=== PATIENT | female | born 1955 | race Caucasian/White ===

== ENCOUNTER 2017-11-30 09:50 | Outpatient (CLI) | payer OTHER ==
--- NOTE | 2017-11-30 11:43 | RAD ---
CERVICAL SPINE 3 VIEWS: Date: 11/30/17 HISTORY: Neck pain. FINDINGS/IMPRESSION: Postop changes of lower cervical spine, including anterior cervical spine fusions from C3 through C7 are again seen, as well as exam of 09/19/09. These appear to be in good position and alignment. Metal lic hardware is intact. No acute fracture, dislocation, or bony destruction is seen. POS: [facility]
== END 2017-11-30 09:51 | disposition home or self-care (01) ==
LOC: SCSRAD 09:50
PROVIDERS: ATTEND Psychiatry & Neurology Neurology
DX: M50.220 Other cervical disc displacement, mid-cervical region, unspecified level (principal); Z98.1 Arthrodesis status
CPT/HCPCS: 72040

== ENCOUNTER 2017-12-21 10:30 | Outpatient (CLI) | payer OTHER | END 2017-12-21 10:31 | disposition home or self-care (01) | LOC: CTENTCT 10:30 | PROVIDERS: ATTEND Otolaryngology Plastic Surgery within the Head & Neck | DX: J32.9 Chronic sinusitis, unspecified (principal) | CPT/HCPCS: 70486 ==

== ENCOUNTER 2018-01-06 12:11 | Day surgery (SDC) | payer OTHER ==
[2018-01-05 11:13] VITALS: BMI 22.8
[~2018-01-06 12:11] MED LIST: Ketorolac Tromethamine 30 MG/ML VIAL ONE; Lidocaine 1% PF 5 ML VIAL ONE; Ondansetron HCl/PF 4 MG/2 ML Vial ONE; Propofol 200 MG/20 ML VIAL ONE; Succinylcholine Chloride 20 MG/ML 10 ml SYRINGE FS ONE
[2018-01-06] MEDS ORDERED: Oxymetazoline HCl 0.05% ( 15 ML ) ONE ×2 (14:12→15:20)
[2018-01-06] MEDS ORDERED: Ondansetron HCl/PF 4 MG/2 ML Vial ONE ×2 (14:15→15:19)
[2018-01-06] MEDS ORDERED: Midazolam HCl 2 mg/2 ml Vial ONE (14:32)
[2018-01-06] MEDS ORDERED: Famotidine/PF 20 mg/2ml Vial ONE (15:19)
[2018-01-06] MEDS ORDERED: Fentanyl 100 MCG/2 ML VIAL ONE ×2 (15:19→16:30)
[2018-01-06] MEDS ORDERED: Bacitracin Zinc Ointment 30 gm TUBE ONE (15:20)
[2018-01-06] MEDS ORDERED: Lidocaine 1% w/Epinephrine 1:200K 30 ML VIAL ONE (15:20)
[2018-01-06] MEDS ORDERED: HYDROcodone/Acetaminophen 5/325 mg Tablet ONE (17:48)
--- NOTE | 2018-01-07 13:01 | OP ---
PREOPERATIVE DIAGNOSES: 1. Recurrent acute sinusitis. 2. Chronic rhinosinusitis. 3. Bilateral middle turbinate orlando bullosa. 4. Bilateral inferior turbinate hypertrophy. 5. Nasal obstruction. POSTOPERATIVE DIAGNOSES: 1. Recurrent acute sinusitis. 2. Chronic rhinosinusitis. 3. Bilateral middle turbinate orlando bullosa 4. Bilateral inferior turbinate hypertrophy. 5. Nasal obstruction. PROCEDURES: 1. Bilateral endoscopic sinus surgery, total ethmoidectomies. 2. Bilateral endoscopic sinus surgery, maxillary antrostomies. 3. Bilateral endoscopic sinus surgery, frontal sinusotomies. 4. Bilateral inferior turbinate submucosal resection. POSTOPERATIVE DIAGNOSIS: 1. Recurrent acute sinusitis. 2. Chronic rhinosinusitis. 3. Bilateral middle turbinate orlando bullosa 4. Bilateral inferior turbinate hypertrophy. 5. Nasal obstruction. SURGEON: Donnell Currie M.D. ESTIMATED BLOOD LOSS: 50 mL COMPLICATIONS: None. ANESTHESIA: GETA. DESCRIPTION OF PROCEDURE: The patient was taken to the operating room and placed supine on the table . General endotracheal anesthesia obtained by the Anesthesia staff. Tube was secured in the left lo wer lip. The patient was then placed in the beach chair position. The 0 degree endoscope was used t o inject 1% lidocaine with 1:100,000 epinephrine via a 27-gauge needle into the inferior turbinates, middle turbinates, lateral nasal wall. Following this, the 0 degree scope was advanced to visualize the large middle turbinates which were obstructing the entire lateral nasal wall. Vertical incisions were made in the anterior portion of the middle turbinate, exposing the large bilateral orlando bullo sas. The lateral portion of the orlando bullosa wall was then resected using the straight microdebrid er and the straight Blakesley forceps. Following this, the uncinate process was visualized and was a nteriorly fractured using the bone probe. The uncinate was then removed bilaterally using the microd ebrider and straight Blakesley forceps. Following this, the natural maxillary ostia was then identif ied with the ball-ended probe and was gently widened using the curved microdebrider and straight micr odebrider bilaterally. Following this, the ethmoidal bulla was identified bilaterally and was punctu red on its medial and inferior aspect and was removed using the microdebrider and straight Blakesley forceps. Following this, the grand lamella was identified bilaterally and was punctured in the poste rior ethmoidal cells. Working from posterior to anterior, the ethmoidal cells were opened in a mucos al-sparing technique. Following this, 45-degree scope along with 40-degree RADenoid blade was then u sed to further open the frontal sinus ostia and frontal sinus recess area. Following this, the nasal cavity was irrigated. Meropacks were placed in the middle meatus. The patient tolerated the proced ure well.
== END 2018-01-06 18:10 | disposition home or self-care (01) ==
LOC: SDC 12:11
PROVIDERS: ATTEND Otolaryngology Plastic Surgery within the Head & Neck
PROC: 09TU8ZZ Resection of Right Ethmoid Sinus, Via Natural or Artificial Opening Endoscopic (ICD-10-PCS; principal; 2018-01-06)
PROC: 099R8ZZ Drainage of Left Maxillary Sinus, Via Natural or Artificial Opening Endoscopic (ICD-10-PCS; principal; 2018-01-06)
PROC: 099Q8ZZ Drainage of Right Maxillary Sinus, Via Natural or Artificial Opening Endoscopic (ICD-10-PCS; principal; 2018-01-06)
PROC: 09TL4ZZ Resection of Nasal Turbinate, Percutaneous Endoscopic Approach (ICD-10-PCS; principal; 2018-01-06)
PROC: 09TV8ZZ Resection of Left Ethmoid Sinus, Via Natural or Artificial Opening Endoscopic (ICD-10-PCS; principal; 2018-01-06)
PROC: 099T8ZZ Drainage of Left Frontal Sinus, Via Natural or Artificial Opening Endoscopic (ICD-10-PCS; principal; 2018-01-06)
PROC: 099S8ZZ Drainage of Right Frontal Sinus, Via Natural or Artificial Opening Endoscopic (ICD-10-PCS; principal; 2018-01-06)
DX: J01.91 Acute recurrent sinusitis, unspecified (principal); J32.9 Chronic sinusitis, unspecified; J34.3 Hypertrophy of nasal turbinates; J34.89 Other specified disorders of nose and nasal sinuses; J42 Unspecified chronic bronchitis; K21.9 Gastro-esophageal reflux disease without esophagitis; K58.9 Irritable bowel syndrome, unspecified; M19.90 Unspecified osteoarthritis, unspecified site; M81.0 Age-related osteoporosis without current pathological fracture; G43.909 Migraine, unspecified, not intractable, without status migrainosus; Z88.1 Allergy status to other antibiotic agents; Z88.2 Allergy status to sulfonamides; Z88.5 Allergy status to narcotic agent; Z88.8 Allergy status to other drugs, medicaments and biological substances; Z79.899 Other long term (current) drug therapy
CPT/HCPCS: 85014; 93005; 93010; 96374; J0131; J2250; J2405; J3010; J7620; S0028

== ENCOUNTER 2018-02-05 08:36 | Outpatient (CLI) | payer OTHER | END 2018-02-05 08:37 | disposition home or self-care (01) | LOC: BICMAMMO 08:36 | PROVIDERS: ATTEND Family Medicine | DX: Z12.31 Encounter for screening mammogram for malignant neoplasm of breast (principal); R92.8 Other abnormal and inconclusive findings on diagnostic imaging of breast | CPT/HCPCS: 77067 ==

== ENCOUNTER 2018-02-12 08:55 | Outpatient (CLI) | payer OTHER | END 2018-02-12 08:56 | disposition home or self-care (01) | LOC: BICMAMMO 08:55 | PROVIDERS: ATTEND Family Medicine | DX: R92.2 Inconclusive mammogram (principal) | CPT/HCPCS: G0279 ==

== ENCOUNTER 2018-02-27 16:46 | Emergency (ER) | payer OTHER ==
--- NOTE | 2018-02-27 17:40 | RAD ---
AP VIEW CHEST: 02/27/18 HISTORY: Fall with chest pain. AP view chest demonstrates ACDF plates and screws in the lower cervical spine. the lungs are well aer ated. No evidence of active intrathoracic disease seen. No evidence of effusions, pneumonia or pneumo thorax seen. IMPRESSION: Unremarkable AP view chest. POS: [facility]
--- NOTE | 2018-02-27 17:42 | RAD ---
TWO VIEWS RIGHT HUMERUS: 02/27/18 HISTORY: Fall with right humeral pain. AP and lateral views right humerus obtained. Two views right humerus demonstrates some widening of the right AC joint. This may be postoperative o r may represent right AC joint posttraumatic separation. Correlate with comparison radiographs of rig ht and left shoulders to evaluate for possible right AC joint separation as well as correlate with cl inical findings. The right humerus is unremarkable. there may be a nondisplaced right 8th rib fracture. IMPRESSION: 1. Possible right AC joint separation and nondisplaced right 8th rib fracture. 2. No evidence of right humeral abnormality seen. POS: [facility]
--- NOTE | 2018-02-27 17:43 | RAD ---
AP VIEW PELVIS: 02/27/18 HISTORY: 63-year-old with history of fall. Pelvic pain. AP view of the pelvis is obtained. The pelvis is unremarkable. No evidence of pelvic fractures, sublu xations or bony lesions seen. IMPRESSION: Unremarkable AP view pelvis. POS: [facility]
--- NOTE | 2018-02-27 17:47 | CT ---
CT BRAIN 02/27/18 HISTORY: Fall. Pinned down under right side of body. Noncontrast enhanced CT images of the brain obtained. Brain and bone windows obtained. CT images of the brain demonstrate fluid seen in the right maxillary sinus. A moderate amount of flui d seen in the right frontal sinus. The patient has had previous surgical possible unroofing in the ri ght and left ethmoid air cells. Some minimal left sphenoid sinus mucosal thickening is seen. No evidence of acute intracranial masses, hemorrhages or strokes seen. IMPRESSION: Paranasal sinus disease. No evidence of acute intracranial pathology seen. POS: [facility]
[2018-02-27] MEDS ORDERED: Ibuprofen 200 MG TAB ONE (18:03)
== END 2018-02-27 18:23 | disposition home or self-care (01) ==
LOC: SCSER 16:46
DX: S22.31XA Fracture of one rib, right side, initial encounter for closed fracture (principal); S43.101A Unspecified dislocation of right acromioclavicular joint, initial encounter; K21.9 Gastro-esophageal reflux disease without esophagitis; J44.9 Chronic obstructive pulmonary disease, unspecified; F41.9 Anxiety disorder, unspecified; F17.210 Nicotine dependence, cigarettes, uncomplicated; Z79.899 Other long term (current) drug therapy; W19.XXXA Unspecified fall, initial encounter
CPT/HCPCS: 70450; 71045; 72170

== ENCOUNTER 2018-03-05 23:16 | Emergency (ER) | payer OTHER ==
[2018-03-06] MEDS ORDERED: Ketorolac Tromethamine 30 MG/ML VIAL ONE (00:03)
[2018-03-06 00:05] LABS: #Basophils 0.1 thou/uL (0.0-0.2); #Eosinphils 0.2 thou/uL (0.0-0.7); #Lymphocytes 2.9 thou/uL (1.20-3.40); #Monocytes 0.6 thou/uL (0.11-0.59); #Neutrophils 5.3 thou/uL (1.40-6.50); %Basophils 0.9 % (0.0-1.0); %Lymphocytes 32.2 % (21.0-51.0); %Monocytes 6.8 % (0.0-10.0); %Neutrophils 58.2 % (42.0-75.0); Hemoglobin 12.6 g/dL (12.0-16.0); Mean Corpuscular HGB CONC 34.8 g/dL (32.0-36.0); Mean Corpuscular Hemoglobin 31.6 pg (27.0-31.0); Mean Corpuscular Volume 90.8 fl (81.0-99.0); Platelet Count 197 thou/uL (130-400); RBC Distribution Width 11.9 % (11.5-14.5); Red Blood Cell (RBC) Count 3.97 mill/uL (4.20-5.40)
[2018-03-06 00:19] LABS: ALT (SGPT) 12 U/L (8-55); AST (SGOT) 15 U/L (5-34); Albumin 3.8 g/dL (3.4-4.8); Alkaline Phosphatase 85 U/L (40-150); Anion Gap 13 mmol/L (10-20); BUN (Urea Nitrogen) 16 mg/dL (9.8-20.1); Bilirubin, Total 0.2 mg/dL (0.2-1.2); Calc. Creatinine Clearance 0 mL/min (70-130); Carbon Dioxide 27 mmol/L (23-31); Chloride 104 mmol/L (98-107); Estimated GFR-MDRD 64; Globulin 2.8 g/dL (2.4-3.5); Glucose 105 mg/dL (80-115); Potassium 3.7 mmol/L (3.5-5.1); Protein, Total 6.6 g/dL (6.0-8.3); Sodium 140 mmol/L (136-145)
--- NOTE | 2018-03-06 08:24 | CT ---
CHEST AND ABDOMEN AND PELVIS CT WITH CONTRAST CT THORACIC SPINE WITH CONTRAST CT LUMBAR SPINE WITH CONTRAST: (Reformatted imaging performed) CLINICAL HISTORY: Chest pain, right upper abdominal pain, related to injury from fall. FINDINGS: There are linear parenchymal densities of the bilateral apices and the left upper lobe indicating pro bable areas of scar and/or subsegmental atelectasis. Nonspecific patchy ground-glass and nodular sub pleural densities are also present bilaterally more sizable on the right, with overlying right 4th ri b cortical irregularity. There is no pleural effusion or pneumothorax. The thoracoabdominal aorta i s nonaneurysmal, with scattered vascular disease present. No acute posttraumatic sequelae of the jorge luis id abdominal organs. There is an exophytic density emanating posteriorly and laterally from the left kidney, which as present on prior abdomen CT 09/23/10. The bowel is incompletely evaluated without the presence of enteric contrast. No ascites or pneumoperitoneum. Moderate distention of the unopac ified urinary bladder as present. Evaluation of the thoracolumbar spine reveals no definite acute co mpression fracture or significant subluxation. There is multilevel degenerative change present. Inc idental note, within the partially imaged thyroid gland, punctate hypoattenuation may relate to small nodules of the thyroid gland. IMPRESSION: 1. There are scattered nonspecific nodular and ground glass subpleural densities of each lung, compo nent of which likely relates to small contusion, underlying a minimal right 4th rib deformity. Recom mend CT thorax as followup in 3-4 months to confirm resolution, exclude progression. 2. Additional details are discussed above. CODE T POS: [facility]
== END 2018-03-06 02:25 | disposition home or self-care (01) ==
LOC: SCSER 23:16
DX: R07.89 Other chest pain (principal); K21.9 Gastro-esophageal reflux disease without esophagitis; J44.9 Chronic obstructive pulmonary disease, unspecified; F17.210 Nicotine dependence, cigarettes, uncomplicated; F41.9 Anxiety disorder, unspecified; G89.29 Other chronic pain; Z79.899 Other long term (current) drug therapy; W19.XXXA Unspecified fall, initial encounter
CPT/HCPCS: 71260; 74177; 80053; 85025; 96374; J1885

== ENCOUNTER 2018-03-24 08:50 | Outpatient (CLI) | payer OTHER ==
--- NOTE | 2018-03-24 10:05 | RAD ---
PA AND LATERAL CHEST: History: Dyspnea. Comparison: 03-24-17 FINDINGS: Heart size is within normal limits. There are atherosclerotic changes of the aorta. The lungs are melida ar of infiltrates. Linear scarring is seen in the left upper lobe. IMPRESSION: Chronic lung change. Stable chest. POS: [facility]
== END 2018-03-24 08:51 | disposition home or self-care (01) ==
LOC: RAD 08:50
PROVIDERS: ATTEND Internal Medicine Critical Care Medicine
DX: R06.00 Dyspnea, unspecified (principal)
CPT/HCPCS: 71046

== ENCOUNTER 2018-03-24 14:15 | Outpatient (CLI) | payer OTHER | END 2018-03-24 14:16 | disposition home or self-care (01) | LOC: BICMRI 14:15 | PROVIDERS: ATTEND Orthopaedic Surgery | DX: M75.101 Unspecified rotator cuff tear or rupture of right shoulder, not specified as traumatic (principal) ==

== ENCOUNTER 2018-05-07 09:07 | Outpatient (CLI) | payer OTHER ==
--- NOTE | 2018-05-07 12:40 | ULT ---
PELVIC ULTRASOUND: DATE: 05/07/18. Hit Abdominal pain. FINDINGS: The uterus and bilateral ovaries are not visualized. The patient provides a history of prior complet e hysterectomy. There are mildly distended fluid-filled loops of bowel seen within the pelvis. The urinary bladder is partially distended and grossly normal in appearance. No free fluid or mass is seen in the pelvis. IMPRESSION: 1. Nonvisualization of the uterus and bilateral ovaries related to patient's provided history of comp lete hysterectomy. 2. No mass or free fluid is seen in the pelvis. POS: [facility]
--- NOTE | 2018-05-07 12:42 | ULT ---
ULTRASOUND ABDOMEN: HISTORY: Abdominal pain. COMPARISON: None. FINDINGS: Visualized portions of the pancreas unremarkable. Hepatic echotexture is normal. Portable vein is p atent with antegrade flow. Common bile duct measures just 7 mm. Prior cholecystectomy. Right kidney measures 11.9 x 4.3 x 5 cm without mass, hydronephrosis, or abno rmal calcifications. The spleen measures 10 cm in length. The left kidney measures 10.4 x 5.1 x 3.9 cm with a mildly comp licated hypoechoic focus of the inferior pole measuring up to 2.5 cm. IMPRESSION: Findings suggesting a complicated left renal cyst. A followup in 6 months is recommended. POS: [facility]
== END 2018-05-07 09:08 | disposition home or self-care (01) ==
LOC: SCSULT 09:07
PROVIDERS: ATTEND Family Medicine
DX: R10.9 Unspecified abdominal pain (principal); R14.0 Abdominal distension (gaseous); R68.81 Early satiety; Z90.710 Acquired absence of both cervix and uterus
CPT/HCPCS: 76700; 76856

== ENCOUNTER 2018-09-10 08:26 | Emergency (ER) | payer OTHER ==
[2018-09-10] MEDS ORDERED: Ketorolac Tromethamine 30 MG/ML VIAL ONE (08:46)
--- NOTE | 2018-09-10 09:17 | RAD ---
LEFT KNEE 4 VIEWS: Date: 09/10/18 HISTORY: Fall. Left knee pain. FINDINGS/IMPRESSION: No fracture or dislocation is seen. POS: [facility]
--- NOTE | 2018-09-10 09:18 | RAD ---
CHEST 1 VIEW: Date: 09/10/18 Time: 0856 hours HISTORY: Trauma, chest pain. FINDINGS: The heart size is normal. The aorta is tortuous. The lungs are expanded without focal areas of consol idation, pneumothorax, or pleural effusions. There are postop changes and metallic hardware in the lo wer cervical spine. IMPRESSION: No radiographic evidence of acute cardiopulmonary process. POS: [facility]
--- NOTE | 2018-09-10 09:19 | RAD ---
AP PELVIS: Date: 09/10/18 HISTORY: Fall. COMPARISON: 02/27/18. FINDINGS: Pelvic ring is intact without evidence of fracture. SI joints are symmetric. No diastasis of symphysi s. Minimal arthritic changes of the hips are seen. IMPRESSION: No evidence of acute injury. POS: [facility]
--- NOTE | 2018-09-10 09:20 | RAD ---
RIGHT HUMERUS 2 VIEWS: Date: 09/10/18 HISTORY: Fall with humeral pain. FINDINGS: Postoperative changes related to what appears to be a previous rotator cuff repair are seen. The bone s appear demineralized. There are no signs of fracture. IMPRESSION: No evidence of fracture. POS: [facility]
--- NOTE | 2018-09-10 09:21 | CT ---
CT HEAD WITHOUT CONTRAST: Date: 09/10/18 COMPARISON: 02/27/18. HISTORY: Fall from standing, pain. TECHNIQUE: Serial axial CT imaging at 4.8 mm intervals from vertex through skull base without contrast. FINDINGS: Imaged paranasal sinuses/mastoid air cells demonstrate mild mucosal thickening of left maxillary sinu s. No acute osseous abnormality is evident. No intracranial hemorrhage, midline shift, mass effect, o r ventricular enlargement. IMPRESSION: No intracranial hemorrhage or displaced calvarial fracture. POS: [facility]
== END 2018-09-10 10:05 | disposition home or self-care (01) ==
LOC: SCSER 08:26
DX: S09.90XA Unspecified injury of head, initial encounter (principal); S80.01XA Contusion of right knee, initial encounter; S40.011A Contusion of right shoulder, initial encounter; S20.212A Contusion of left front wall of thorax, initial encounter; S20.211A Contusion of right front wall of thorax, initial encounter; K21.9 Gastro-esophageal reflux disease without esophagitis; G43.909 Migraine, unspecified, not intractable, without status migrainosus; F17.210 Nicotine dependence, cigarettes, uncomplicated; Z79.891 Long term (current) use of opiate analgesic; Z79.899 Other long term (current) drug therapy; W18.30XA Fall on same level, unspecified, initial encounter
CPT/HCPCS: 70450; 71045; 72170; 96372; J1885

== ENCOUNTER 2018-11-08 09:20 | Outpatient (CLI) | payer OTHER ==
--- NOTE | 2018-11-08 12:15 | CT ---
CT ANGIOGRAM GREAT VESSELS NECK WITH IV CONTRAST AND 3D MIP RECONSTRUCTIONS: Date: 11-08-18 Provided Clinical History: Syncopal episodes. FINDINGS: There is a normal three vessel configuration of the great vessels of the arch. The right subclavian, innominate, left subclavian and vertebral arteries demonstrate a normal CT angiographic appearance. T he right common carotid and internal carotid arteries demonstrate no significant stenosis. The left common carotid artery demonstrates atherosclerotic irregularity and calcified mural plaque i nvolving the carotid bulb. There is near occlusion of the external carotid artery origin on the left. There is calcified and noncalcified plaque producing approximately 50% stenosis involving the proxim al left internal carotid artery. The remainder of the left internal carotid artery demonstrate no sig nificant stenosis. The visualized lung apices demonstrate paraseptal emphysematous change and biapical pleural parenchym al scarring. Post-operative changes are seen involving the cervical spine. No regional lymphadenopath y or mass is evident. IMPRESSION: 1. Approximately 50% left proximal internal carotid artery stenosis. 2. Near occlusion of the left external carotid artery at its origin. POS: [facility]
[2018-11-08] MEDS ORDERED: ISOVUE-370 76%-LOCM 1 ML ONE (12:47)
== END 2018-11-08 09:21 | disposition home or self-care (01) ==
LOC: BICCT 09:20
PROVIDERS: ATTEND Neurological Surgery
DX: R55 Syncope and collapse (principal); I65.22 Occlusion and stenosis of left carotid artery
CPT/HCPCS: 70498; 82565

== ENCOUNTER 2019-01-03 15:52 | Emergency (ER) | payer OTHER ==
--- NOTE | 2019-01-03 16:34 | RAD ---
CHEST ONE VIEW LEFT RIBS TWO VIEWS: History: History of injury following a fall against a chain link fence with left sided pain. FINDINGS: Minimal linear and parenchymal changes in the left suprahilar region having more of a chronic appeara nce. No evidence for acute rib fracture. No pneumothorax or pleural effusion. IMPRESSION: No evidence for acute rib fracture, pneumothorax, or pleural effusion. Minimal linear and parenchymal changes, evidence for some scarring in the left upper lobe, stable. POS: [facility]
== END 2019-01-03 16:26 | disposition home or self-care (01) ==
LOC: SCSER 15:52
DX: S20.212A Contusion of left front wall of thorax, initial encounter (principal); K21.9 Gastro-esophageal reflux disease without esophagitis; G43.909 Migraine, unspecified, not intractable, without status migrainosus; F17.210 Nicotine dependence, cigarettes, uncomplicated; W19.XXXA Unspecified fall, initial encounter

== ENCOUNTER 2019-03-16 14:36 | Outpatient (CLI) | payer OTHER ==
--- NOTE | 2019-03-16 15:42 | MMO ---
Bilateral MAMMO Bilat Screen DDI. CLINICAL HISTORY: Patient is 64 years old and is seen for screening. The patient has no family history of breast cancer. The patient has no personal history of cancer. VIEWS: The views performed were: bilateral craniocaudal; bilateral mediolateral oblique; and right exaggerated craniocaudal. FILMS COMPARED: The present examination has been compared to prior imaging studies performed at [facility] on 12/25/2015, 12/26/2016, 02/05/2018 and 02/12/2018. This study has been interpreted with the assistance of computer-aided detection. MAMMOGRAM FINDINGS: There are scattered fibroglandular densities. There are stable benign appearing calcifications seen in both breasts. There are also vascular calcifications. There are no suspicious masses, suspicious calcifications, or new areas of architectural distortion. IMPRESSION: THERE IS NO MAMMOGRAPHIC EVIDENCE OF MALIGNANCY. A ROUTINE FOLLOW-UP MAMMOGRAM IN 1 YEAR IS RECOMMENDED. ACR BI-RADS Category 2 - Benign finding MAMMOGRAPHY NOTE: 1. A negative mammogram report should not delay a biopsy if a dominant of clinically suspicious mass is present. 2. Approximately 10% to 15% of breast cancers are not detected by mammography. 3. Adenosis and dense breasts may obscure an underlying neoplasm.
--- NOTE | 2019-03-16 16:17 | BD ---
Exam: DEXA Bone Density 03/16/19 HISTORY: Osteoporosis screening. COMPARISON: Bone density study 2017. FINDINGS: Lumbar Spine: BMD (g/cm2) T-SCORE Z-SCORE L1 0.817 -1.6 -0.2 L2 0.872 -1.4 0.1 L3 1.037 -0.4 1.2 L4 1.104 0.4 2.1 L1-L4 0.967 -0.7 0.8 WHO classification is normal. Left Femoral Neck: 0.621 -2.1 -0.7 Total Femur: 0.752 -1.6 -0.5 WHO classification is osteopenia. Ten year fracture risk: Major osteoporotic fracture: 10%. Hip fracture: 2.3%. Impression: Osteopenia With a fracture risk as above. POS: [facility]
== END 2019-03-16 14:37 | disposition home or self-care (01) ==
LOC: BICMAMMO 14:36
PROVIDERS: ATTEND Family Medicine
DX: Z12.31 Encounter for screening mammogram for malignant neoplasm of breast (principal); Z13.820 Encounter for screening for osteoporosis; M85.852 Other specified disorders of bone density and structure, left thigh
CPT/HCPCS: 77067; 77080

== ENCOUNTER 2019-04-06 13:42 | Outpatient (CLI) | payer OTHER ==
--- NOTE | 2019-04-06 14:13 | RAD ---
EXAM: Chest 2 views: HISTORY: Dyspnea COMPARISON: 03/24/2018 FINDINGS: There is a normal-sized cardiomediastinal silhouette. There is no evidence of consolidation, mass, or pleural effusion. Degenerative changes are seen in the spine. Postsurgical changes are seen in the cervical spine and right shoulder. IMPRESSION: No evidence of acute cardiopulmonary disease
== END 2019-04-06 13:43 | disposition home or self-care (01) ==
LOC: RAD 13:42
PROVIDERS: ATTEND Internal Medicine Critical Care Medicine
DX: R06.00 Dyspnea, unspecified (principal)
CPT/HCPCS: 71046

== ENCOUNTER 2019-06-28 15:38 | Outpatient (CLI) | payer OTHER ==
--- NOTE | 2019-06-28 16:12 | RAD ---
LUMBAR SPINE: 06/28/19 Four views. HISTORY: Low back pain. FINDINGS/IMPRESSION: Lumbar vertebrae maintain normal height. Mild loss of disc space at all levels. Mild spurring from th e lumbar vertebrae and prominent facet hypertrophy. Posterolisthesis at L2-3 is noted. Slight carmelo listhesis at L3-4. No significant change in alignment with flexion or extension. POS: [facility]
== END 2019-06-28 15:39 | disposition home or self-care (01) ==
LOC: BICRAD 15:38
PROVIDERS: ATTEND Neurological Surgery
DX: M54.5 Low back pain (principal); M43.16 Spondylolisthesis, lumbar region; M46.06 Spinal enthesopathy, lumbar region; M51.86 Other intervertebral disc disorders, lumbar region
CPT/HCPCS: 72110

== ENCOUNTER 2019-08-19 06:35 | Day surgery (SDC) | payer OTHER ==
[2019-08-12 15:56] VITALS: BMI 22.3
--- NOTE | 2019-08-18 16:38 | HP ---
HISTORY OF PRESENT ILLNESS: Ms. Castano is known to us for prior evaluations of cervical radiculopathy and low back pain. She returns now after having updated MRI of the cervical and lumbar spine as well as nerve conduction study. She has numbness in both hands as well as some intrinsic hand weakness. NCV shows no obvious concern for ulnar neuropathy or carpal tunnel. She does have C8-T1 foraminal stenosis that would account for C8 radicular symptoms that would fit this. She has treated this with medication injections and therapy with no improvement in her symptoms and hopes to discuss possible surgical interventions for treatment. PAST MEDICAL HISTORY: Significant for chronic bronchitis, IBS, osteoarthritis, osteoporosis, gastroesophageal reflux disease, migraines, neck pain. PAST SURGICAL HISTORY: Lumbar spine surgery, unspecified shoulder surgery, tonsillectomy, hemorrhoidectomy, appendectomy, section, cholecystectomy, left knee arthroscopy, ACDF. CURRENT MEDICATIONS: 1. Botox injections. 2. Nexium. 3. Effexor. 4. Aspirin. 5. [place]. ALLERGIES: TO ADVAIR, SULFA DRUGS, FLAGYL, CODEINE, BENADRYL, MORPHINE, LEVAQUIN, CIPRO, DURAGESIC, FENTANYL, ZITHROMAX, KEFLEX. PHYSICAL EXAMINATION: GENERAL: The patient is alert and oriented x3. Gait is antalgic and slowed. Upper extremity motor exam is limited by pain. She does have some decreased director life strength bilaterally. Positive Spurling's bilaterally. ASSESSMENT: Cervical radiculopathy. PLAN: Dr. Rodríguez met with the patient, reviewed imaging, advocated for bilateral C8-T1 foraminotomies. She explained the patient risks, benefits, and alternatives to the procedure. The patient expressed understanding and elected to go for surgery as discussed. I do believe the patient is mentally competent and capable of making medical decisions for herself. We will move forward with surgery as planned. Job ID: [id number]
[2019-08-19] MEDS ORDERED: Midazolam HCl 2 mg/2 ml Vial ONE (07:59)
[2019-08-19] MEDS ORDERED: Fentanyl 100 MCG/2 ML VIAL ONE (09:51)
[2019-08-19] MEDS ORDERED: Lidocaine 1% PF 5 ML VIAL ONE ×2 (09:52→10:01)
[2019-08-19] MEDS ORDERED: Rocuronium Bromide 50 MG/5 ML VIAL ONE (09:52)
[2019-08-19] MEDS ORDERED: PROPOFOL 20 ML ONE (09:52)
[2019-08-19] MEDS ORDERED: PHENYLEPHRINE-NS 100 MCG/ML 10 ML SYRINGE ONE (10:01)
[2019-08-19] MEDS ORDERED: Rocuronium Bromide 10 MG/ML (10ML VIAL) ONE (10:01)
[2019-08-19] MEDS ORDERED: Glycopyrrolate 0.2 MG/ML 5 ML SYRINGE ONE (10:01)
[2019-08-19] MEDS ORDERED: Ondansetron PF 4 MG/2 ML Vial ONE (10:01)
[2019-08-19] MEDS ORDERED: Dexamethasone 20 MG/5 ML VIAL ONE (10:01)
[2019-08-19] MEDS ORDERED: PROPOFOL 200 MG/20 ML VIAL ONE (10:01)
[2019-08-19] MEDS ORDERED: Bupivacaine HCl 0.5%/Epinephrine 1:200,000/PF 30 ml Vial ONE (10:34)
[2019-08-19] MEDS ORDERED: Thrombin 5000 UNITS/5 ML VIAL ONE (10:35)
[2019-08-19] MEDS ORDERED: HYDROmorphone 2 MG/ML VIAL ONE (11:38)
[2019-08-19] MEDS ORDERED: HYDROmorphone 0.5 MG/0.5 ML SYRINGE ONE (13:13)
[2019-08-19] MEDS ORDERED: HYDROcodone/Acetaminophen 5/325 mg Tablet ONE (14:54)
[2019-08-19] MEDS ORDERED: Cyclobenzaprine 10 MG TAB ONE (15:18)
--- NOTE | 2019-08-22 11:24 | OP ---
DATE OF PROCEDURE: 08/19/2019 HIDE GRADER: Mike Martin PA-C. INDICATION: Pain. DIAGNOSIS: C8 radiculopathies. PROCEDURE PERFORMED: Bilateral C8 foraminotomies. ANESTHESIA: General. DESCRIPTION OF PROCEDURE: The patient was brought into the operating room and placed under general anesthesia. She was flipped from the supine to prone position on the operating room table. A linear incision was planned over the C8-T1 segment. This area was prepped and draped. After an appropriate operative pause, the incision was created. The soft tissues were swept away from midline. A small high-speed cutting drill bit as well as 1 and 2 mm Kerrisons were then used to perform foraminotomies over the exiting C8 nerve roots bilaterally. After completing the decompression, the wound was irrigated. Hemostasis was maintained throughout. The wound was then closed in anatomic layers and a pressure dressing was applied. There were no known procedural complications. Job ID: [id number]
== END 2019-08-19 15:55 | disposition home or self-care (01) ==
LOC: SDC 06:35
PROVIDERS: ATTEND Neurological Surgery
PROC: 00NW0ZZ Release Cervical Spinal Cord, Open Approach (ICD-10-PCS; principal; 2019-08-19)
PROC: 0RB30ZZ Excision of Cervical Vertebral Disc, Open Approach (ICD-10-PCS; principal; 2019-08-19)
DX: M54.12 Radiculopathy, cervical region (principal); K58.9 Irritable bowel syndrome, unspecified; J42 Unspecified chronic bronchitis; M19.90 Unspecified osteoarthritis, unspecified site; K21.9 Gastro-esophageal reflux disease without esophagitis; Z79.899 Other long term (current) drug therapy; Z88.1 Allergy status to other antibiotic agents; Z88.2 Allergy status to sulfonamides; Z88.5 Allergy status to narcotic agent; Z88.8 Allergy status to other drugs, medicaments and biological substances
CPT/HCPCS: 76000; J0670; J0690; J1100; J1170; J2001; J2250; J2405; J2704; J3010

== ENCOUNTER 2020-03-19 06:19 | Outpatient (CLI) | payer OTHER | END 2020-03-19 06:20 | disposition home or self-care (01) | LOC: LABBT 06:19 | PROVIDERS: ATTEND Otolaryngology Plastic Surgery within the Head & Neck | DX: Z01.812 Encounter for preprocedural laboratory examination (principal); J34.89 Other specified disorders of nose and nasal sinuses; R09.81 Nasal congestion | CPT/HCPCS: 85014; 87635; U0003 ==

== ENCOUNTER 2020-03-26 06:29 | Outpatient (CLI) | payer OTHER ==
[2020-03-26 17:26] LABS: BHCG - Serum Negative (NEGATIVE); Pregs Control Background? CLEAR/WHITE (CLR/WHITE); Pregs Control Bar Appear? YES (CONTROL BAR)
[2020-03-27 13:11] LABS: SARS-CoV-2 MS2 Positive; SARS-CoV-2 N Gene Negative; SARS-CoV-2 S Gene Negative; SARS-CoV-2 orf1ab Negative
== END 2020-03-26 06:30 | disposition home or self-care (01) ==
LOC: LABBT 06:29
PROVIDERS: ATTEND Otolaryngology Plastic Surgery within the Head & Neck
DX: Z01.812 Encounter for preprocedural laboratory examination (principal); Z11.59 Encounter for screening for other viral diseases; J34.89 Other specified disorders of nose and nasal sinuses; R09.81 Nasal congestion
CPT/HCPCS: 84703; 85014; 87635; U0003

== ENCOUNTER 2020-03-28 07:34 | Day surgery (SDC) | payer OTHER ==
[2020-03-28] MEDS ORDERED: AFRIN NASAL MIST 15 ML BOT ONE ×2 (08:04→09:26)
[2020-03-28] MEDS ORDERED: Ondansetron PF 4 MG/2 ML Vial ONE ×2 (08:36→11:21)
[2020-03-28] MEDS ORDERED: Midazolam HCl 2 mg/2 ml Vial ONE ×2 (08:36→09:25)
[2020-03-28] MEDS ORDERED: Fentanyl 100 MCG/2 ML VIAL ONE (09:25)
[2020-03-28] MEDS ORDERED: Lidocaine 1% w/Epinephrine 1:100K 20 ML VIAL ONE (09:26)
[2020-03-28] MEDS ORDERED: PROPOFOL 200 MG/20 ML VIAL ONE (11:21)
--- NOTE | 2020-03-28 19:27 | EKG ---
Test Reason : PREOP Blood Pressure : / mmHG Vent. Rate : 072 BPM Atrial Rate : 072 BPM P-R Int : 162 ms QRS Dur : 082 ms QT Int : 406 ms P-R-T Axes : 072 054 070 degrees QTc Int : 444 ms Normal sinus rhythm Normal ECG No previous ECGs available Confirmed by DR. Dmitry ESCOBAR ([id number]) on 03/28/2020 7:27:22 PM Referred By: ARIANA Confirmed By:DR. Dmitry ESCOBAR
--- NOTE | 2020-03-29 12:45 | OP ---
DATE OF PROCEDURE: 03/28/2020 PREOPERATIVE DIAGNOSES: 1. Bilateral nasal obstruction. 2. Bilateral dynamic valve collapse. ESTIMATED BLOOD LOSS: Less than 5 mL. COMPLICATIONS: None. ANESTHESIA: TIVA. DESCRIPTION OF PROCEDURE: The patient was taken to the operating room. IV anesthesia was obtained. 1% lidocaine with 1:100,000 epinephrine was injected into the lateral nasal wall and nasal tip bilaterally. Following this, a small incision was made for a transcartilaginous approach to the lateral nasal wall. Following this, microdissection was performed overlying the lateral nasal bones and a small pocket was created supporting a graft, which was placed to support this lateral wall collapse. Incision was then closed using a 5-0 chromic gut stitch. The patient tolerated the procedure well bilaterally. Job ID: [id number]
== END 2020-03-28 11:02 | disposition home or self-care (01) ==
LOC: SDC 07:34
PROVIDERS: ATTEND Otolaryngology Plastic Surgery within the Head & Neck
PROC: 09QK0ZZ Repair Nasal Mucosa and Soft Tissue, Open Approach (ICD-10-PCS; principal; 2020-03-28)
DX: J34.89 Other specified disorders of nose and nasal sinuses (principal); R09.81 Nasal congestion; G89.29 Other chronic pain; M54.2 Cervicalgia; M54.9 Dorsalgia, unspecified; K21.9 Gastro-esophageal reflux disease without esophagitis; F17.210 Nicotine dependence, cigarettes, uncomplicated; J30.1 Allergic rhinitis due to pollen; J30.81 Allergic rhinitis due to animal (cat) (dog) hair and dander; Z79.82 Long term (current) use of aspirin; Z79.899 Other long term (current) drug therapy; Z88.1 Allergy status to other antibiotic agents; Z88.2 Allergy status to sulfonamides; Z88.5 Allergy status to narcotic agent; Z88.8 Allergy status to other drugs, medicaments and biological substances; Z98.1 Arthrodesis status
CPT/HCPCS: 36415; 80053; 80061; 93005; 93010; J2250; J2405; J2704; J3010

== ENCOUNTER 2021-03-08 07:01 | Outpatient (CLI) | payer OTHER ==
[2021-03-06 13:43] VITALS: BMI 22.8
[2021-03-08 10:20] VITALS: BP 111/57; TEMP 98
== END 2021-03-08 10:00 | disposition home or self-care (01) ==
LOC: RAD 07:01
PROVIDERS: ATTEND Neurological Surgery
DX: M47.22 Other spondylosis with radiculopathy, cervical region (principal); M47.26 Other spondylosis with radiculopathy, lumbar region; M47.813 Spondylosis without myelopathy or radiculopathy, cervicothoracic region; N20.0 Calculus of kidney; N28.9 Disorder of kidney and ureter, unspecified; I70.0 Atherosclerosis of aorta; Z98.1 Arthrodesis status
CPT/HCPCS: 62305; 72126; 72132; 90471; 90732; G0009

== ENCOUNTER 2021-04-04 11:11 | Outpatient (CLI) | payer OTHER | END 2021-04-04 11:12 | disposition home or self-care (01) | LOC: BICRAD 11:11 | PROVIDERS: ATTEND Family Medicine | DX: M25.561 Pain in right knee (principal); M25.461 Effusion, right knee ==

== ENCOUNTER 2021-04-16 09:59 | Outpatient (CLI) | payer OTHER | END 2021-04-16 10:00 | disposition home or self-care (01) | LOC: BICRAD 09:59 | PROVIDERS: ATTEND Internal Medicine Critical Care Medicine | DX: R06.00 Dyspnea, unspecified (principal) | CPT/HCPCS: 71046 ==

== ENCOUNTER 2021-04-23 13:23 | Outpatient (CLI) | payer OTHER | END 2021-04-23 13:24 | disposition home or self-care (01) | LOC: BICCT 13:23 | PROVIDERS: ATTEND Internal Medicine Critical Care Medicine | DX: Z12.2 Encounter for screening for malignant neoplasm of respiratory organs (principal); F17.210 Nicotine dependence, cigarettes, uncomplicated; I70.0 Atherosclerosis of aorta; N28.1 Cyst of kidney, acquired | CPT/HCPCS: 71271 ==

== ENCOUNTER 2022-03-13 13:27 | Outpatient (CLI) | payer MEDICARE, OTHER | END 2022-03-13 13:28 | disposition home or self-care (01) | LOC: TBSIIMAG 13:27 | PROVIDERS: ATTEND Neurological Surgery | DX: M47.26 Other spondylosis with radiculopathy, lumbar region (principal); M47.22 Other spondylosis with radiculopathy, cervical region; M48.061 Spinal stenosis, lumbar region without neurogenic claudication; M48.02 Spinal stenosis, cervical region; M51.16 Intervertebral disc disorders with radiculopathy, lumbar region; M43.16 Spondylolisthesis, lumbar region; Z98.1 Arthrodesis status; Z98.890 Other specified postprocedural states | CPT/HCPCS: 72050; 72156; 72158 ==

== ENCOUNTER 2022-05-07 09:17 | Outpatient (CLI) | payer MEDICARE, OTHER | END 2022-05-07 09:18 | disposition home or self-care (01) | LOC: BICCT 09:17 | PROVIDERS: ATTEND Internal Medicine Critical Care Medicine | DX: Z12.2 Encounter for screening for malignant neoplasm of respiratory organs (principal); F17.210 Nicotine dependence, cigarettes, uncomplicated; J84.10 Pulmonary fibrosis, unspecified; I25.10 Atherosclerotic heart disease of native coronary artery without angina pectoris | CPT/HCPCS: 71271 ==

== ENCOUNTER 2023-05-08 08:43 | Outpatient (CLI) | payer MEDICARE, MEDICAID | END 2023-05-08 08:44 | disposition home or self-care (01) | LOC: BICCT 08:43 | PROVIDERS: ATTEND Internal Medicine Critical Care Medicine | DX: Z12.2 Encounter for screening for malignant neoplasm of respiratory organs (principal); F17.210 Nicotine dependence, cigarettes, uncomplicated; Z78.0 Asymptomatic menopausal state | CPT/HCPCS: 71271 ==